=== PATIENT | male | born 1990 | race Caucasian/White ===

== ENCOUNTER 2024-05-13 06:04 | Emergency (ER) | payer MEDICAID ==
[~2024-05-13] VITALS: Ht 180.3 cm; Wt 61.8 kg
[2024-05-13 07:15] LABS: BILIRUBIN,URINE NEGATIVE (Neg); CLARITY,URINE CLOUDY (Clear); COLOR,URINE YELLOW (Yellow); GLUCOSE, URINE NEGATIVE (Neg); KETONES,URINE NEGATIVE (Neg); LEUKOCYTE ESTERASE ,URINE NEGATIVE (Neg); NITRITES, URINE NEGATIVE (Neg); OCCULT BLOOD,URINE NEGATIVE (Neg); PH,URINE 8.5 (4.8-8.0); PROTEIN,URINE 30 mg/dl (Neg); UROBILINOGEN,URINE 0.2 E.U/dL (0.2-1.0)
[2024-05-13 07:28] LABS: UA COLLECTION TYPE CLN CATCH MIDSTREAM
[2024-05-13 07:30] LABS: WBC,URINE 0-4 /HPF (0-4)
[2024-05-13 07:31] LABS: AMORPHOUS PHOSPHATES 3+; BACTERIA,URINE NONE SEEN /HPF (Neg); MUCUS STRANDS FEW /LPF (Neg); SQUAMOUS EPITHELIAL CELL,UR FEW /LPF (FEW)
[2024-05-13 08:14] LABS: BASOPHILS # (AUTO) 0.1 X10'3 (0-0.2); BASOPHILS % (AUTO) 1.1 % (0-1); EOSINOPHILS # (AUTO) 0.1 X10'3 (0-0.9); EOSINOPHILS % (AUTO) 1.8 % (0-6); HEMATOCRIT 31.2 % (42.0-52.0); HEMOGLOBIN 10.1 g/dl (14.0-17.9); LYMPHOCYTES # (AUTO) 1.5 X10'3 (1.1-4.8); LYMPHOCYTES % (AUTO) 18.6 % (21-51); MEAN CORPUSCULAR HGB CONC 32.5 g/dL (33.0-36.5); MEAN CORPUSCULAR VOLUME 89.3 FL (78-98); MEAN PLATELET VOLUME 7.9 FL (7.4-10.4); MONOCYTES # (AUTO) 0.5 X10'3 (0-0.9); MONOCYTES % (AUTO) 5.8 % (2-12); NEUTROPHILS % (AUTO) 72.7 % (42-75); PLATELET COUNT 493 X10'3 (140-440); RED BLOOD COUNT 3.49 X10'6 (4.70-6.10); RED CELL DISTRIBUTION WIDTH 13.9 % (11.5-14.5); WHITE BLOOD COUNT 8.2 X10'3 (4.5-11.0)
[2024-05-13 08:23] LABS: ALANINE AMINOTRANSFERASE 21 U/L (12-78); ALBUMIN 3.3 G/DL (3.4-5.0); ALBUMIN/GLOBULIN RATIO 0.9 (1.1-1.5); ALKALINE PHOSPHATASE 70 IU/L (46-116); ANION GAP 5 (8-16); ASPARTATE AMINO TRANSFERASE 20 U/L (10-37); BILIRUBIN,TOTAL 0.2 MG/DL (0.1-1.0); BLOOD UREA NITROGEN 11 MG/DL (7-18); BUN/CREATININE RATIO 15.5 (10.0-20.0); CALCIUM 8.4 MG/DL (8.5-10.1); CHLORIDE 104 MMOL/L (99-107); CREATININE 0.71 MG/DL (0.60-1.10); GLUCOSE 110 MG/DL (70-104); LIPASE 34 U/L (16-77); POTASSIUM 3.3 MMOL/L (3.5-5.1); SODIUM 139 MMOL/L (135-145); TOTAL CARBON DIOXIDE 29.7 MMOL/L (24-32); eCRCL 127 ML/MIN; eGFR > 90 ML/MIN
[2024-05-13] MEDS: HYDROmorphone/PF 0.2 MG/ML SYRINGE IV ONE (09:35)
[2024-05-13] MEDS: pantoprazole 40 MG vial IV ONE (09:35)
[2024-05-13] MEDS: mag hydrox/Alum hydrox/simeth 30ml oral suspension PO ONE (10:18)
[2024-05-13 10:44] LABS: URINE AMPHETAMINE SCREEN NEGATIVE (Neg); URINE BARBITUATE SCREEN NEGATIVE (Neg); URINE BENZODIAZEPINES SCREEN NEGATIVE (Neg); URINE CANNABINOID SCREEN POSITIVE (Neg); URINE COCAINE SCREEN NEGATIVE (Neg); URINE METHADONE SCREEN NEGATIVE (Neg); URINE OPIATE SCREEN NEGATIVE (Neg); URINE PHENCYCLIDINE SCREEN NEGATIVE (Neg)
[2024-05-13 11:09] VITALS: TEMP 98.7
[2024-05-13] MEDS: POTASSIUM CHLORIDE 20 MEQ/15 ML oral solution PO ONE (11:56)
[2024-05-13] MEDS: normal saline 1000ml 1,000 ML IV ONE (12:12)
[2024-05-13] MEDS ORDERED: PANT-47 PO (13:06)
[2024-05-13 13:12] VITALS: BP 127/85; PULSE 78; RESP 16; O2SAT 99
== END 2024-05-13 13:25 | disposition home or self-care (01) ==
LOC: ER 06:06
DX: K29.00 Acute gastritis without bleeding (principal); R14.0 Abdominal distension (gaseous); E87.6 Hypokalemia; R11.10 Vomiting, unspecified; F12.90 Cannabis use, unspecified, uncomplicated
CPT/HCPCS: 36415; 76700; 80053; 80305; 81001; 83605; 83690; 85025; 93005; 96361; 96374; 96375; 99285; J1171; J2470; J7030